=== PATIENT | male | born 2000 ===

== ENCOUNTER → 2018-05-15 | Day surgery (SDC) | payer OTHER ==
[~2018-05-15] MED LIST: LIDOCAINE 1% INJ-PF (10 MG/ML) 30 ML SDV ONE
--- NOTE | 2018-05-15 11:10 | RADIOLOGY REPORT (SQ) ---
EXAM DESCRIPTION: ARTHRO HIP INJ W/ANESTHESIA; FLUORO/NEEDLE PLACEMENT COMPLETED DATE/TIME: 05/15/2018 10:38 am REASON FOR STUDY: RIGHT HIP PAIN (M25.551) M25.551 PAIN IN RIGHT HIP COMPARISON: None. FLUOROSCOPY TIME: 0.1 minute. 1 images saved to PACS. LIMITATIONS: None. PROCEDURE: Procedure, risks, benefits and alternatives explained to patient who then gave written c onsent. The right hip was marked and a time-out was called for correct marking verification. Entry site marked using fluoroscopic guidance. Hip prepped and draped using sterile technique. Local ane sthesia achieved using 1% lidocaine injection. Hypodermic needle introduced into the joint space un susy direct fluoroscopic visualization. Non-ionic contrast instilled to confirm intra-articular posit ion. Dilute gadolinium solution then injected. Needle removed and entry site covered with sterile bandage. No immediate complications noted. TECHNIQUE: Digital images acquired during fluoroscopy and stored on PACS. Patient immediately take n to the MR suite for additional imaging. INJECTION LOCATION: Right hip. CONTRAST TYPE AND AMOUNT: 1 mL Isovue and 8 mL Prohance/Saline mixture. IMPRESSION: SUCCESSFUL NEEDLE PLACEMENT AND INJECTION FOR RIGHT HIP MR ARTHROGRAM. COMMENT: Quality ID 145: Final reports for procedures using fluoroscopy that document radiation exp osure indices, or exposure time and number of fluorographic images (if radiation exposure indices are not available) TECHNICAL DOCUMENTATION: JOB ID: [id number] [employer]- All Rights Reserved Reading location - IP/workstation name: [facility]
--- NOTE | 2018-05-15 11:10 | RADIOLOGY REPORT (SQ) ---
EXAM DESCRIPTION: ARTHRO HIP INJ W/ANESTHESIA; FLUORO/NEEDLE PLACEMENT COMPLETED DATE/TIME: 05/15/2018 10:38 am REASON FOR STUDY: RIGHT HIP PAIN (M25.551) M25.551 PAIN IN RIGHT HIP COMPARISON: None. FLUOROSCOPY TIME: 0.1 minute. 1 images saved to PACS. LIMITATIONS: None. PROCEDURE: Procedure, risks, benefits and alternatives explained to patient who then gave written c onsent. The right hip was marked and a time-out was called for correct marking verification. Entry site marked using fluoroscopic guidance. Hip prepped and draped using sterile technique. Local ane sthesia achieved using 1% lidocaine injection. Hypodermic needle introduced into the joint space un susy direct fluoroscopic visualization. Non-ionic contrast instilled to confirm intra-articular posit ion. Dilute gadolinium solution then injected. Needle removed and entry site covered with sterile bandage. No immediate complications noted. TECHNIQUE: Digital images acquired during fluoroscopy and stored on PACS. Patient immediately take n to the MR suite for additional imaging. INJECTION LOCATION: Right hip. CONTRAST TYPE AND AMOUNT: 1 mL Isovue and 8 mL Prohance/Saline mixture. IMPRESSION: SUCCESSFUL NEEDLE PLACEMENT AND INJECTION FOR RIGHT HIP MR ARTHROGRAM. COMMENT: Quality ID 145: Final reports for procedures using fluoroscopy that document radiation exp osure indices, or exposure time and number of fluorographic images (if radiation exposure indices are not available) TECHNICAL DOCUMENTATION: JOB ID: [id number] [employer]- All Rights Reserved Reading location - IP/workstation name: [facility]
--- NOTE | 2018-05-15 11:37 | RADIOLOGY REPORT (SQ) ---
EXAM DESCRIPTION: MRI RT LOWER JOINT WITH COMPLETED DATE/TIME: 05/15/2018 11:15 am REASON FOR STUDY: RIGHT HIP PAIN (M25.551) M25.551 PAIN IN RIGHT HIP right hip pain for 2 years. R ight hip dislocation 2016. No previous surgery right hip COMPARISON: Arthrogram earlier today TECHNIQUE: Post arthrogram imaging is performed using T1 and T1 and T2 fat saturated sequences of th e pelvis and specific hip of interest. LIMITATIONS: None. FINDINGS: RIGHT HIP: JOINT DISTENSION: Adequate. No loose body. BONE MARROW: No edema. No marrow replacement. FEMORAL HEAD, NECK, AND ACETABULUM: No occult fracture. No osteophytes or subchondral cysts. Normal s phericity of femoral head/neck junction. No acetabular dysplasia. No evidence of femoroacetabular imp ingement. LABRUM AND CARTILAGE: No labral tear. Cartilage of normal thickness without delamination. MUSCLES AND SOFT TISSUES: There is moderate fluid in the right trochanteric bursa best shown on phillip nal T2 whole pelvis images 17 through 20. Minimal increased signal along the distal gluteal tendons at the greater trochanter insertion. Adductors and piriformis normal. Abductors and normal without e theo or fluid. Iliopsoas bursa without fluid. Hamstring attachments without edema or tear. PUBIC RAMI AND ISCHIUM: No occult fracture. SACRUM AND DINORA: SI joints normal in signal. No occult fracture. EFFUSIONS: None. PELVIC SOFT TISSUES: No masses or adenopathy. SCIATIC NERVE: Identified without masses. OTHER: Non arthrogram images of the left hip demonstrate trace fluid at the trochanteric bursa. Phys iologic joint space fluid. No abnormal marrow signal. Joint space well maintained. IMPRESSION: Right-sided trochanteric bursitis TECHNICAL DOCUMENTATION: JOB ID: [id number] [employer]- All Rights Reserved Reading location - IP/workstation name: [email or web address]
== END ==
LOC: RAD 09:40
PROVIDERS: ATTEND Student in an Organized Health Care Education/Training Program
DX: M25.551 Pain in right hip (principal); M70.61 Trochanteric bursitis, right hip
CPT/HCPCS: 73722; 77002; 27095; A9576; J3490